=== PATIENT | male | born 1995 | race Caucasian/White ===

== ENCOUNTER 2017-06-22 09:21 | Emergency (ER) | payer SELFPAY ==
[~2017-06-22] VITALS: Ht 185.4 cm; Wt 70.4 kg
[2017-06-22] MEDS ORDERED: ZITHROMAX500 MG PO (10:34)
[2017-06-22 10:46] VITALS: BP 122/77
== END 2017-06-22 10:47 | disposition home or self-care (01) ==
LOC: EME 09:21
DX: J02.9 Acute pharyngitis, unspecified (principal)
CPT/HCPCS: 87651 90; 99281; 99284